=== PATIENT | female | born 1965 | race Caucasian/White ===

== ENCOUNTER → 2020-12-18 14:58 | Outpatient (CLI) | payer MEDICAID, SELFPAY | PROVIDERS: Family Provider Family Medicine; PCP Family Medicine; Visit Provider Nurse Practitioner | DX: N34.3 Urethral syndrome, unspecified (principal) | CPT/HCPCS: 81002; 87077; 87086; 87186 ==

== ENCOUNTER → 2022-01-26 13:33 | Outpatient (CLI) | payer OTHER, MEDICAID, SELFPAY ==
--- NOTE | 2022-01-26 13:34 | DI.RAD.S_ITS ---
PROCEDURE: XR SHOULDER RT MIN 2V INDICATIONS: Right shoulder pain TECHNIQUE: 3 views of the shoulder were acquired. COMPARISON: None. FINDINGS: Bones: No fractures or dislocations. No suspicious bony lesions. Visualized ribs appear intact. Soft tissues: No suspicious soft tissue calcifications. IMPRESSION: No visualized acute fracture or dislocation. However, if clinical concern and/or pain persist, short interval imaging followup in 7-10 days is recommended, as occult injury cannot be definitively excluded. Dictated by: Bernice Tejeda M.D. on 01/26/2022 at 18:07 Approved by: Bernice Tejeda M.D. on 01/26/2022 at 18:07
== END ==
PROVIDERS: Family Provider Family Medicine; Referring Provider Nurse Practitioner Family; Visit Provider Nurse Practitioner Family
DX: M25.511 Pain in right shoulder (principal)
CPT/HCPCS: 73030

== ENCOUNTER 2023-10-14 23:57 | Emergency (ER) | payer OTHER, SELFPAY ==
[2023-10-15 00:32] VITALS: BP 132/73; PULSE 79; RESP 16; TEMP 36.1; O2SAT 98
[2023-10-15] MEDS: PHENAZOPYRIDINE 100 MG TABLET PO ×2 (02:12→05:20)
[2023-10-15 02:35] LABS: Bacteria Urine Few (2-10); RBC Urine 1-5/HPF (0-5/HPF); Squamous Epithelial Cell Urine 0-1 /HPF (0-5/HPF); Urine Volume 10mL (spun); WBC Urine 5-10/HPF (0-5/HPF)
[2023-10-15 02:36] LABS: Culture Indicated Urine Specimen Cultured
--- NOTE | 2023-10-15 04:40 | ED.FEMALEGU ---
HPI - Female Genitourinary General Chief complaint: Urogenital-Female Stated complaint: thinks UTI, pain Time Seen by Provider: 10/15/23 03:42 Source: patient Mode of arrival: Ambulatory History of Present Illness HPI Narrative: 58-year-old female with history of urinary tract infections when she was sexually active, last urinary tract infection 2 years ago, now with dysuria and frequency and painful urination since yesterday, no fevers or chills. Blood in urine. She does not take blood thinners. No back pain, no flank pain. She has not had nausea or vomiting. She denies hard stools, black stools, loose stools. No injury or trauma new activities. Denies chest pain or shortness of breath. Related Data Previous Rx's Medication Instructions Recorded nitrofurantoin 100 mg PO Q12H 7 days #14 caps 10/15/23 monohydrate/macrocrystals 100 mg capsule (Macrobid) phenazopyridine 200 mg tablet 200 mg PO TID PRN pain #10 tabs 10/15/23 (Pyridium) Allergies Allergy/AdvReac Type Severity Reaction Status Date / Time No Known Drug Allergies Allergy Unverified 01/26/22 13:03 Review of Systems Review of Systems Narrative: per HPI Exam Narrative Exam Narrative: GENERAL: Well-developed patient, in mild distress. HEAD: Atraumatic. Normocephalic. EYES: Pupils equal round and reactive. Extraocular motions intact. No scleral icterus. No injection or drainage. ENT: Nose without bleeding, purulent drainage. Throat without erythema, tonsillar hypertrophy or exudate. Airway patent. NECK: Trachea midline. Non tender CARDIOVASCULAR: Regular rate and rhythm without murmurs, gallops, or rubs. RESPIRATORY: Clear to auscultation. Breath sounds equal bilaterally. No wheezes, rales, or rhonchi. GASTROINTESTINAL: Abdomen soft, non-tender, nondistended. EXTREMITIES: No edema or joint tenderness. BACK: Nontender without deformity or crepitance. No flank tenderness. NEURO: AOx3. Grossly nonfocal neuro exam. SKIN: No rash or erythema of visible areas Initial Vital Signs Initial Vital Signs: Vital Signs Temperature 97 F L 10/15/23 00:32 Pulse Rate 79 10/15/23 00:32 Respiratory Rate 16 10/15/23 00:32 Blood Pressure 132/73 10/15/23 00:32 Pulse Oximetry 98 10/15/23 00:32 Oxygen Delivery Method Room Air 10/15/23 00:32 Course Orders Ordered: Discontinued Medications Nitrofurantoin Macrocrystals (Nitrofurantoin Er 100 Mg Capsule) 100 mg PO NOW ONE Stop: 10/15/23 05:17 Last Admin: 10/15/23 05:20 Dose: 100 mg Documented By: HERNESTO Phenazopyridine HCl (Phenazopyridine 100 Mg Tablet) 100 mg PO NOW ONE Stop: 10/15/23 01:35 Last Admin: 10/15/23 02:12 Dose: 100 mg Documented By: EFREM Phenazopyridine HCl (Phenazopyridine 100 Mg Tablet) 200 mg PO NOW ONE Stop: 10/15/23 03:43 Last Admin: 10/15/23 04:40 Dose: Not Given Documented By: Phenazopyridine HCl (Phenazopyridine 100 Mg Tablet) 100 mg PO NOW ONE Stop: 10/15/23 05:16 Last Admin: 10/15/23 05:20 Dose: 100 mg Documented By: HERNESTO Vital Signs Vital signs: Vital Signs - 8 hr 10/15/23 00:32 Temperature 97 F L Pulse Rate 79 Respiratory Rate 16 Blood Pressure 132/73 Pulse Oximetry 98 Oxygen Delivery Method Room Air MDM - Female Genitourinary Lab Data Labs: Lab Results 10/15/23 Range/Units 00:21 Urine RBC 1-5/hpf (0-5/HPF) Urine WBC 5-10/hpf H (0-5/HPF) Ur Squamous Epith Cells 0-1 /hpf (0-5/HPF) Urine Bacteria Few (2-10) H (None) Ur Culture Indicated? Specimen cultured Vol Urine Centrifuged 10ml (spun) Urine Dip Bedside Urine Glucose Negative Bedside Urine Bilirubin - Negative Bedside Urine Ketone - Negative Urine Specific [place] 1.005 Bedside Urine Occult Blood +++ Bedside Urine pH 7.5 Bedside Urine Protein - Negative Bedside Urine Urobilinogen - Negative Bedside Urine Nitrite - Negative Bedside Urine Leukocytes +++ 500 Esterase MDM Narrative Medical decision making narrative: 58yo female with dysuria and gross hematuria symptoms, no fever, SIRS screen negative, no tenderness abdomen, no flank tenderness, no blood thinner medication or trauma. Likely cystitis. Urine cultured. PO nitrofuantion, PO pyridium firs doses in ED, prescription courses sent, drink plenty fluids, recheck symptoms and culture results with PCP advised 2 days, make sure gross hematuria resolved, return precautions discussed Discharge Plan Departure Patient Disposition: Home Clinical Impression: Urinary tract infection Instructions: DI for Urinary Tract Infection (UTI) Activity Restrictions/Additional Instructions: Painful urination with bloody urine, urinalysis suspicious for infection, urine culture sent by protocol. First dose antibiotic Macrobid, prescription to be sent for your pharmacy. Pyridium for analgesia in the urinary tract additionally sent as prescription. Drink plenty of fluids. Recheck symptoms with your regular doctor next couple of days. Return to this/nearest emergency department for any change worsening symptoms or any concerns prior Prescriptions: New phenazopyridine [Pyridium] 200 mg tablet 200 mg PO TID PRN (Reason: pain) Qty: 10 0RF nitrofurantoin monohyd/m-cryst [Macrobid] 100 mg capsule 100 mg PO Q12H 7 Days Qty: 14 0RF Rx Instructions: must administer with a meal/food Referrals: iGa Boles MD [Primary Care Provider] - Stand Alone Forms: Patient Portal/API
[2023-10-15] MEDS: NITROFURANTOIN ER 100 MG CAPSULE PO (05:20)
[2023-10-15 05:23] VITALS: BP 117/85; PULSE 50; RESP 16; O2SAT 100
== END 2023-10-15 05:25 | disposition home or self-care (01) ==
PROVIDERS: Emergency Provider Emergency Medicine; Family Provider Family Medicine; PCP Family Medicine
DX: N39.0 Urinary tract infection, site not specified (principal)
CPT/HCPCS: 81003; 81015; 87077; 87086; 87186; 99283

== ENCOUNTER → 2024-10-20 09:11 | Outpatient (CLI) | payer OTHER, SELFPAY ==
[2024-10-20 10:00] LABS: Influenza A - CEPHEID Flu A NEGATIVE (NEGATIVE); Influenza B - CEPHEID Flu B NEGATIVE (NEGATIVE)
[2024-10-20 10:02] LABS: COVID-19 CEPHEID 4-PLEX PCR POSITIVE (Negative)
== END ==
PROVIDERS: Family Provider Family Medicine; PCP Family Medicine; Visit Provider Physician Assistant
DX: R09.81 Nasal congestion (principal)
CPT/HCPCS: 87637